=== PATIENT | female | born 1965 | race Hispanic/Latino ===

== ENCOUNTER 2017-03-23 07:03 | Day surgery (SDC) | payer OTHER, SELFPAY ==
[~2017-03-23] VITALS: Ht 152.4 cm; Wt 71.2 kg
[~2017-03-23 07:03] MED LIST: ASPI-555 PO; FENT-77 TD; LISI-617 PO; MELA1TAB21 PO; SERT25TA5 PO; SIMV10TA6 PO; SITA1TAB6 PO; SODIUM CHLORIDE 0.9% 1000ML 1,000 ML IV ONE; TRAM50TA4 PO; TRAZ-147 PO
[2017-03-23 07:51] VITALS: BP 133/78
[2017-03-23] MEDS ORDERED: PROPOFOL 10 MG/ML 20ML VIAL IV ONE (09:18)
== END 2017-03-23 10:10 ==
LOC: ENDO 07:03 → DAH 07:03 → ENDO 10:10
PROVIDERS: ATTEND Internal Medicine Gastroenterology
DX: Z12.11 Encounter for screening for malignant neoplasm of colon (principal); K57.30 Diverticulosis of large intestine without perforation or abscess without bleeding; E11.9 Type 2 diabetes mellitus without complications; E78.5 Hyperlipidemia, unspecified; Z86.19 Personal history of other infectious and parasitic diseases; Z83.3 Family history of diabetes mellitus
CPT/HCPCS: 36415; 82948 ×2; 84703; A4606; G0121; J2704; J7030